=== PATIENT | female | born 1955 | race Two or more races ===

== ENCOUNTER 2018-03-19 15:46 | Emergency (ER) | payer MEDICAID ==
[~2018-03-19] VITALS: Ht 152.4 cm; Wt 59.0 kg
--- NOTE | 2018-03-19 17:00 | Emergency Room Report ---
History of Present Illness General Chief Complaint: Skin Rash/Abscess Source: Patient Present Illness HPI patient is a 62-year-old female with no significant past medical history here complaining of a pruritic rash on her chest times one day. Denies some exposure , exposure to any allergens, pain, shortness of breath, difficulty breathing, fever/chills. Denies insect bite. Denies headache, dizziness, chest pain, palpitation Allergies: Coded Allergies: No Known Allergies (Unverified , 03/19/18) Patient History Past Medical History: see triage record Past Surgical History: none Last Menstrual Period: NA Now: No Immunizations: UTD Reviewed Nursing Documentation: PMH: Agreed; PSxH: Agreed Nursing Documentation-PMH Past Medical History: No Stated History Review of Systems All Other Systems: negative except mentioned in HPI Physical Exam Vital Signs Date Time Temp Pulse Resp B/P (MAP) Pulse Ox O2 Delivery O2 Flow Rate FiO2 03/19/18 16:31 98.7 80 16 154/94 95 Room Air 98.8 Sp02 EP Interpretation: reviewed, normal General Appearance: normal inspection, well appearing, no apparent distress, alert, GCS 15 Head: normocephalic, atraumatic Eyes: bilateral eye normal inspection, bilateral eye PERRL ENT: normal ENT inspection, hearing grossly normal, normal pharynx, no angioedema Neck: normal inspection, full range of motion, supple, thyroid normal, no meningismus Respiratory: normal inspection, chest non-tender, lungs clear, normal breath sounds, no rhonchi, no respiratory distress Cardiovascular #1: normal inspection, normal peripheral pulses, regular rate, rhythm, no edema, no gallop, no murmur Gastrointestinal: normal inspection, soft Genitourinary: deferred Musculoskeletal: normal inspection, back normal, digits/nails normal Neurologic: normal inspection, alert, oriented x3 Psychiatric: normal inspection, judgement/insight normal, memory normal Skin: warm/dry, rash - views macular rash on chest no pustules no papules noted erythematousvesicles Lymphatic: normal inspection, no adenopathy, axilla node tender (R) Medical Decision Making PA Attestation all orders, diagnosis, treatment plans were reviewed with my supervising physician Dr. Madsen Diagnostic Impression: Primary Impression: Eczema ER Course patient is a 62-year-old female with no significant past medical history here complaining of a pruritic rash on her chest times one day. Denies some exposure , exposure to any allergens, pain, shortness of breath, difficulty breathing, fever/chills. Denies insect bite. Denies headache, dizziness, chest pain, palpitation Ddx considered but are not limited to eczema/fungal infection Vital signs: are WNL, pt. is afebrile H&PE are most consistent with eczema ORDERS: triamcinolone cream and Benadryl ED INTERVENTIONS: None required at this time. DISCHARGE: At this time pt. is stable for d/c to home. Will provide printed patient care instructions, and any necessary prescriptions. Care plan and follow up instructions have been discussed with the patient prior to discharge. Last Vital Signs Date Time Temp Pulse Resp B/P (MAP) Pulse Ox O2 Delivery O2 Flow Rate FiO2 03/19/18 16:31 98.7 80 16 154/94 95 Room Air 98.8 Disposition: HOME, SELF-CARE Condition: Stable Scripts Diphenhydramine Hcl* (BENADRYL*) 25 Mg Capsule 25 MG ORAL Q6H PRN for Itching, #30 CAP Prov: Moshe Fabian P.A. 03/19/18 Triamcinolone Acetonide (TRIAMCINOLONE ACETONIDE) 15 Gm Cream..g. 15 GM TP BID for 10 Days, #1 TUBE Prov: Moshe Fabian P.A. 03/19/18 Patient Instructions: Eczema Additional Instructions: use medication as directed, if shortness of breath, fever or chills return to the emergency room. Exposure to potential allergens Moshe Fabian Mar 19, 2018 17:00
[2018-03-19] MEDS ORDERED: BENADRYL25 MG ORAL (17:02)
[2018-03-19] MEDS ORDERED: TRIAMCINOLONE A15 G1 TP (17:02)
[2018-03-19 17:16] VITALS: BP 154/94
== END 2018-03-19 17:17 | disposition home or self-care (01) ==
LOC: EMR 17:17
DX: L30.9 Dermatitis, unspecified (principal)
CPT/HCPCS: 99284

== ENCOUNTER 2019-06-01 15:14 | Emergency (ER) | payer BC, MEDICAID ==
[~2019-06-01] VITALS: Ht 142.2 cm; Wt 63.5 kg
[~2019-06-01 15:14] MED LIST: BENADRYL25 MG ORAL; TRIAMCINOLONE A15 G1 TP
[2019-06-01] MEDS ORDERED: BANOPHEN25 MG PO (15:29)
[2019-06-01] MEDS ORDERED: METHYLPREDNISOLO4 M2 PO (15:29)
[2019-06-01] MEDS ORDERED: HYDROCORTISONE-30 GM TOPIC (15:29)
[2019-06-01] MEDS ORDERED: Dexamethasone 4mg/ml vial IVP ONE (15:45)
[2019-06-01] MEDS ORDERED: DiphenhydrAMINE 50mg/ml Inj IVP ONE (15:45)
--- NOTE | 2019-06-01 15:50 | NUR ---
Patient walked in to ER accomapnied by her daughter complaining of generalized body rash and knee pain. Patient is alert and oriented x 4. Patient stated that her allergic reaction was because of eating chicken. She stated that she didnt take any medication for the body rash.
[2019-06-01 16:00] VITALS: BP 144/82
--- NOTE | 2019-06-01 16:34 | Diagnostic Imaging Report ---
History: PAIN Exam: XR LEFT KNEE 2 views Comparison: None available FINDINGS: No fracture or dislocation. Small joint effusion. The joint spaces appear within limits. IMPRESSION: No fracture or dislocation. Small joint effusion.
[2019-06-01] MEDS ORDERED: PEPCID AC20 M2 PO (16:45)
[2019-06-01] MEDS ORDERED: BENADRYL25 M3 PO (16:45)
[2019-06-01] MEDS ORDERED: PREDNISONE20 MG ORAL (16:45)
--- NOTE | 2019-06-01 16:45 | Emergency Room Report ---
History of Present Illness General Chief Complaint: Allergic Reaction Source: Patient Present Illness HPI 64-year-old female presents with a urticarial rash is itchy in nature started today unknown aggravating relieving factors no shortness of breath, severity is mild, constant patient presents for evaluation. Allergies: Coded Allergies: No Known Allergies (Unverified , 03/19/18) Patient History Past Medical History: see triage record Reviewed Nursing Documentation: PMH: Agreed; PSxH: Agreed Nursing Documentation-PMH Past Medical History: No Stated History Review of Systems All Other Systems: negative except mentioned in HPI Physical Exam Vital Signs Date Time Temp Pulse Resp B/P (MAP) Pulse Ox O2 Delivery O2 Flow Rate FiO2 06/01/19 15:23 98.1 101 18 140/87 (104) 96 Room Air Sp02 EP Interpretation: reviewed, normal General Appearance: well appearing, no apparent distress, alert Head: normocephalic, atraumatic Eyes: bilateral eye PERRL, bilateral eye EOMI ENT: uvula midline, moist mucus membranes Neck: supple, thyroid normal, supple/symm/no masses Respiratory: lungs clear, no respiratory distress, no retraction, no accessory muscle use Cardiovascular #1: normal peripheral pulses, regular rate, rhythm, no edema, no gallop, no murmur Gastrointestinal: non tender, soft, no guarding, no rebound Musculoskeletal: normal inspection Neurologic: alert, oriented x3 Psychiatric: mood/affect normal Skin: warm/dry, other - Diffuse urticarial rash Medical Decision Making Diagnostic Impression: Primary Impression: Allergic reaction Qualified Codes: T78.40XA - Allergy, unspecified, initial encounter ER Course Urticarial rash present, steroids given, Benadryl given, Pepcid Reevaluation at 4:43 PM, symptoms have resolved Disposition home with return precautions, no evidence of anaphylaxis Last Vital Signs Date Time Temp Pulse Resp B/P (MAP) Pulse Ox O2 Delivery O2 Flow Rate FiO2 06/01/19 15:23 98.1 101 18 140/87 (104) 96 Room Air Disposition: HOME, SELF-CARE Condition: Stable Scripts Prednisone* (PREDNISONE*) 20 Mg Tablet 20 MG ORAL DAILY, #5 TAB Prov: Delmer Oakley MD 06/01/19 Diphenhydramine HCl (Benadryl) 25 Mg Capsule 25 MG PO TID PRN for Itching, #30 CAP Prov: Delmer Oakley MD 06/01/19 Famotidine (PEPCID AC) 20 Mg Tablet 20 MG PO BID, #60 TAB Prov: Delmer Oakley MD 06/01/19 Referrals: NON PHYSICIAN (PCP) [facility]. [facility] Patient Instructions: Hives, [id number], Allergies Additional Instructions: The patient was provided with discharge instructions, notified to follow-up with a primary care doctor and or specialist in the next 24-48 hours, and to return to the ED if they have worsening of their symptoms. Please note that this report is being documented using DRAGON technology. This can lead to erroneous entry secondary to incorrect interpretation by the dictating instrument. Delmer Oakley MD Jun 01, 2019 16:45
--- NOTE | 2019-06-01 17:20 | NUR ---
ER DISCHARGE NOTE: Patient is cleared to be discharged per ERMD, pt is aox4, on room air, with stable vital signs. pt was given dc and prescription instructions, pt was able to verbalize understanding, pt id band and iv site removed without complications. pt body rash related to allergic reaction is gone. pt is able to ambulate with steady gait. pt took all belongings.
[2019-06-01 17:25] VITALS: BP 139/60
== END 2019-06-01 17:20 | disposition home or self-care (01) ==
LOC: EMR 15:45
DX: T78.40XA Allergy, unspecified, initial encounter (principal); X58.XXXA Exposure to other specified factors, initial encounter
CPT/HCPCS: 73560; 96361; 96374; 96375; J1100; J1200; S0028; Z7502; 99284

== ENCOUNTER 2019-06-02 12:09 | Emergency (ER) | payer BC, MEDICAID ==
[~2019-06-02] VITALS: Ht 139.7 cm; Wt 60.8 kg
[~2019-06-02 12:09] MED LIST changes: +BANOPHEN25 MG PO; +BENADRYL25 M3 PO; +HYDROCORTISONE-30 GM TOPIC; +METHYLPREDNISOLO4 M2 PO; +PEPCID AC20 M2 PO; +PREDNISONE20 MG ORAL
--- NOTE | 2019-06-02 12:15 | NUR ---
ED Nurse Note: ambulated in to ED due to generalized body rash. Per pt, she was seen by ERMD yesterday. NAD noted. Breathing normal/even/unlaobred.
[2019-06-02 12:28] VITALS: BP 146/84
--- NOTE | 2019-06-02 12:28 | Emergency Room Report ---
History of Present Illness General Chief Complaint: Skin Rash/Abscess Source: Patient Present Illness HPI 64-year-old female with no significant past medical history here complaining of pruritus on bilateral arms and abdomen. She was seen here at [facility] yesterday for same reason. Reports that she has only taken 2 doses of her prednisone. Reports that her lips that are been swelling and the rash keeps coming back. Denies anaphylaxis, chest pain, shortness of breath, palpitation, fever and chills. Multiple urticarial rash is noted on her body. Denies recent travel and change of detergent. Denies camping. Allergies: Coded Allergies: No Known Allergies (Unverified , 03/19/18) Patient History Past Medical History: see triage record Past Surgical History: unable to obtain Pertinent Family History: none Last Menstrual Period: N/A Now: No Immunizations: UTD Reviewed Nursing Documentation: PMH: Agreed; PSxH: Agreed Nursing Documentation-PMH Past Medical History: No Stated History Review of Systems All Other Systems: negative except mentioned in HPI Physical Exam Vital Signs Date Time Temp Pulse Resp B/P (MAP) Pulse Ox O2 Delivery O2 Flow Rate FiO2 06/02/19 12:14 98.1 75 18 146/84 (104) 97 Room Air Sp02 EP Interpretation: reviewed, normal General Appearance: no apparent distress, alert, GCS 15, non-toxic Head: normocephalic, atraumatic Eyes: bilateral eye normal inspection, bilateral eye PERRL ENT: hearing grossly normal, normal pharynx, no angioedema, normal voice Neck: full range of motion, supple/symm/no masses Respiratory: chest non-tender, lungs clear, normal breath sounds, no wheezing, speaking full sentences Cardiovascular #1: regular rate, rhythm, no edema, no murmur, normal capillary refill Gastrointestinal: normal bowel sounds, non tender, soft, non-distended, no guarding, no rebound Genitourinary: normal inspection, no CVA tenderness Musculoskeletal: back normal, gait/station normal, normal range of motion, non- tender, no calf tenderness Neurologic: alert, oriented x3, responsive, motor strength/tone normal, sensory intact, speech normal Psychiatric: judgement/insight normal, memory normal, mood/affect normal, no suicidal/homicidal ideation Skin: rash - uritacaria arms and abdomen Lymphatic: normal inspection, no adenopathy Medical Decision Making PA Attestation All diagnoses and treatment plans were reviewed and discussed with my supervising physician Dr. Vazquez Diagnostic Impression: Primary Impression: Allergic reaction ER Course 64-year-old female with no significant past medical history here complaining of pruritus on bilateral arms and abdomen. She was seen here at [facility] yesterday for same reason. Reports that she has only taken 2 doses of her prednisone. Reports that her lips that are been swelling and the rash keeps coming back. Denies anaphylaxis, chest pain, shortness of breath, palpitation, fever and chills. Multiple urticarial rash is noted on her body. Denies recent travel and change of detergent. Denies camping. Ddx considered but are not limited to: Eczema, scabies, lice, Vital signs: are WNL, pt. is afebrile H&PE are most consistent with: Allergic reaction rash ORDERS: None ED INTERVENTIONS: None required at this time. DISCHARGE: At this time pt. is stable for d/c to home. Will provide printed patient care instructions, and any necessary prescriptions. Care plan and follow up instructions have been discussed with the patient prior to discharge. I advised the patient to follow-up with primary care provider and also continue taking the medication as medications do not work this fast and she has to give it time. Patient also to increase oral hydration patient agrees with the course of treatment Last Vital Signs Date Time Temp Pulse Resp B/P (MAP) Pulse Ox O2 Delivery O2 Flow Rate FiO2 06/02/19 12:14 98.1 75 18 146/84 (104) 97 Room Air Disposition: HOME, SELF-CARE Condition: Stable Patient Instructions: Allergies, [id number] Additional Instructions: Take medication as directed follow-up with your primary care provider you need to finish that medication in order to start seeing improvement Moshe Fabian Jun 02, 2019 12:28
[2019-06-02 12:34] VITALS: BP 146/84
--- NOTE | 2019-06-02 12:34 | NUR ---
ED Nurse Note: Pt cleared by health care Provider for discharge. DC instructions/prescription was given and explained to pt and verbalized understanding of teachings. All medical deviecs such as ID band removed. Pt is AAO x4, ambulatory and left with all personal belongings.
== END 2019-06-02 12:34 | disposition home or self-care (01) ==
LOC: EMR 12:28
DX: T78.40XA Allergy, unspecified, initial encounter (principal); X58.XXXA Exposure to other specified factors, initial encounter
CPT/HCPCS: 99281